=== PATIENT | male | born 1945 | race Caucasian/White ===

== ENCOUNTER 2017-02-08 12:38 | Inpatient (IN) | payer OTHER, MEDICARE ==
[~2017-02-08] VITALS: Ht 172.7 cm; Wt 75.1 kg
[2017-02-14] MEDS ORDERED: WARF-23 PO (16:24)
[2017-02-14] MEDS ORDERED: ENOX80P SQ (16:24)
[2017-02-15] MEDS ORDERED: LACTATED RINGER'S 1000 ML IV PRN (06:00)
[2017-02-15] MEDS ORDERED: POVIDONE IODINE 5% (ANTISEPSIS KIT) 4 APPLICATIONS EACH NARE PRN (06:00)
[2017-02-15] MEDS ORDERED: POVIDONE IODINE 7.5% SCRUB 118 ML BOTTLE TOPICAL SCH (06:00)
[2017-02-15] MEDS ORDERED: ROPIVACAINE PERI-ARTICULAR INJECTION. P-ARTICULR SCH ×5 (06:00)
[2017-02-15] MEDS ORDERED: ceFAZolin 2 GM PREMIX 50 ML IV SCH (06:00)
[2017-02-15] MEDS ORDERED: VANCOMYCIN 1000 MG/NS 250 ML (for <70 kg) IV SCH ×2 (06:00)
[2017-02-15] MEDS ORDERED: INSULIN HUMAN REGULAR 1,000 UNITS/10 ML VIAL SQ PRN (06:00)
[2017-02-15] MEDS ORDERED: METOPROLOL TARTRATE 25 MG TAB PO PRN (06:00)
[2017-02-15] MEDS ORDERED: TRANEXAMIC ACID INJ 718 MG in SODIUM CHLORIDE 0.9% INJ 100 ML IV SCH ×2 (06:00→12:00)
[2017-02-15] MEDS ORDERED: DEXAMETHASONE SOD PHOS 20 MG/5 ML VIAL IV SCH (06:00)
[2017-02-15] MEDS ORDERED: SODIUM CHLORID 0.9% 500 ML IV PRN (06:00)
[2017-02-15] MEDS ORDERED: CHLORHEXIDINE GLUCONATE 2 % 1 PACK (2 CLOTHS) TOPICAL PRN (06:00)
[2017-02-15] MEDS ORDERED: GENTAMICIN SULFATE 80 MG/2 ML VIAL ONE (07:08)
[2017-02-15 07:15] VITALS: BP 136/68; PULSE 71; RESP 18; TEMP 98.7; O2SAT 99
[2017-02-15] MEDS ORDERED: ACETAMINOPHEN 1000 MG/100 ML VIAL IV ONE (08:00)
[2017-02-15] MEDS ORDERED: MIDAZOLAM HCL 2 MG/2 ML VIAL ONE ×2 (08:01→10:49)
[2017-02-15] MEDS ORDERED: FAMOTIDINE 20 MG/2 ML VIAL ONE (08:01)
[2017-02-15] MEDS ORDERED: BUPIVACAINE LIPOSOME PF 1.3% 20 ML VIAL ONE (08:38)
[2017-02-15] MEDS ORDERED: ONDANSETRON HCL 4 MG/2 ML VIAL IVP PRN (10:15)
[2017-02-15] MEDS ORDERED: ACETAMINOPHEN/HYDROcodone 325 MG/5 MG TAB PO PRN (10:15)
[2017-02-15] MEDS ORDERED: BISACODYL 10 MG SUPP RECTAL PRN (10:15)
[2017-02-15] MEDS ORDERED: MORPHINE SULFATE 4 MG/ML INJ IV PUSH PRN (10:15)
[2017-02-15] MEDS ORDERED: diphenhydrAMINE HCL 50 MG/ML VIAL IV PRN (10:15)
[2017-02-15] MEDS ORDERED: ALUMINUM/MAGNESIUM/SIMETH 30 ML CUP PO PRN (10:15)
[2017-02-15] MEDS ORDERED: NALOXONE HCL 0.4 MG/ML AMP IV PRN (10:15)
[2017-02-15] MEDS ORDERED: SODIUM CHLORIDE 0.9% FLUSH 10 ML FLUSH IV FLUSH PRN (10:15)
--- NOTE | 2017-02-15 10:22 | PD.OP ---
cc: Dennys Castelan MD Operative Report Date of Surgery: Feb 15, 2017 Preoperative Diagnosis: Left knee severe osteoarthritis Postoperative Diagnosis: Same Procedure: Left total knee arthroplasty Anesthesia: Spinal and adductor canal block Surgeon: Dennys Castelan Manager Of Hospital(s): JONATHON Rivera The surgical procedure was assisted by my Advanced Registered Nurse Practitioner. My RADIO INTERFERENCE SUPERVISOR presence was necessary throughout this case for the manipulation and positioning of the surgical extremity. My RADIO INTERFERENCE SUPERVISOR was assisting me throughout the duration of this procedure. The skill set of an Advance Registered Nurse Practitioner was medically necessary to complete this procedure. During the surgical case, the surgical scheduler was working at the back table and the Advance Registered Nurse Practitioner was directly assisting me. Operation and Findings: IMPLANTS: DePuy Attune: Patella: size 38. Femur, posterior stabilized size 7. Tibia, rotating platform size 6. Tibial insert, rotating platform, posterior stabilized size 5 mm thickness. ESTIMATED BLOOD LOSS: 150 cc TOURNIQUET TIME: 41 minutes at 250 mmHg pressure. JUSTIFICATION FOR PROCEDURE: The patient has end-stage osteoarthritis to the knee. There is an attached conservative measures pathway form in the chart that describes the nonoperative measures that were undertaken prior to consideration of surgical management. The patient understood the risks and benefits of surgical management. See my office notes for further details PROCEDURE: The patient was brought back to the operative theatre. Adequate anesthesia was obtained. The patient received intravenous vancomycin and Ancef. The lower extremity was prepped and draped in the usual sterile fashion.The leg was exsanguinated, the tourniquet was raised. A standard anterior incision was performed followed by medial parapatellar arthrotomy was performed. End-stage arthritis was identified. Osteotomy of the patella was performed. We drilled holes for the patella. We trialed the patella component. We placed an intramedullary guide into the distal femur. We ultimately resected 11 mm off of the distal femur in 5 degrees of valgus. The remnants of the ACL and PCL were resected. Osteotomy of the proximal tibia was performed, resecting 7 mm off of the medial side. This was done with 3 degrees of posterior slope using an extramedullary guide. The distal end of the guide was placed in the mid aspect of the ankle. The femur was sized, and four chamfer cuts were completed in 3 of external rotation. We then cut the central box in the distal femur to replace the PCL. We resected the remnants of the menisci and removed osteophytes off of the femur and tibia. We then trialed the knee. We punched the tibia for the keel, and then used standard technique to cement in components. Excess cement was removed. We trialed the knee again and the final polyethylene thickness was chosen to provide extension to 0 degrees, and flexion of 140 degrees to gravity. The ligaments were appropriately balanced. Lateral release was not necessary to obtain excellent patellofemoral tracking. The tourniquet was released and adequate hemostasis was obtained. An intra- articular injection of a ropivacaine cocktail was injected. The posterior knee was inspected for excess cement, which was removed. The final polyethylene was put into position after thorough irrigation. We then closed deep fascia with a #2 Stratafix followed by skin with 2-0 Vicryl followed by toby. Postop plan is to weight-bear as tolerated. DVT prophylaxis will be performed with SCDmatias, JUAN ANTONIO beasley, early mobilization, and Lovenox for 30 days followed by 1 month of aspirin. Note that the patient had previously been treated with Coumadin for a history of DVT. The patient had been off of Coumadin for several months prior to his surgery. Dennys Castelan MD Feb 15, 2017 10:22
[2017-02-15] MEDS ORDERED: Post-op Orders (for Pharmacy) MISC XX ONE (10:37)
[2017-02-15] MEDS ORDERED: fentaNYL CITRATE 250 MCG/5 ML AMP ONE (10:50)
[2017-02-15] MEDS: SODIUM CHLOR 0.9% 1000 ML INJ 1,000 ML IV SCH ×2 (11:00→21:00)
[2017-02-15] MEDS ORDERED: DO NOT ADM ANY ANTICOAGULANT DRUGS PRN (11:00)
--- NOTE | 2017-02-15 11:21 | RADRPT ---
EXAM DATE/TIME: 02/15/2017 11:02 [facility] COMPARISON: No previous studies available for comparison. INDICATIONS : Post op left knee. MEDICAL HISTORY : None. SURGICAL HISTORY : None. ENCOUNTER: Initial ACUITY: 1 day PAIN SCORE: Non-responsive. LOCATION: Left Knee. FINDINGS: Patient is status post left knee arthroplasty. The arthroplasty components are in anatomic alignment. No acute bony fracture. Postsurgical features are noted in the soft tissues including surgical stapl es. CONCLUSION: 1. Expected postoperative changes of left knee arthroplasty with arthroplasty components in anatomic alignment and no significant acute fracture. Hugo Farnsworth MD on February 15, 2017 at 11:17 Board Certified Radiologist. This report was verified electronically.
[2017-02-15 12:14] VITALS: BP 131/61; PULSE 63; RESP 16; TEMP 95.7; O2SAT 99
[2017-02-15] MEDS ORDERED: PROPOFOL 200 MG/20 ML AMP IV ONE (13:02)
[2017-02-15] MEDS ORDERED: ePHEDrine/NS 25 MG/5 ML SYR IV ONE (13:02)
[2017-02-15] MEDS ORDERED: LACTATED RINGER'S 1000 ML INJ 1,000 ML IV ONE (13:02)
--- NOTE | 2017-02-15 14:22 | HHI.FF ---
Face to Face Verification Diagnosis: (1) Primary localized osteoarthrosis, lower leg (2) Status post total knee replacement, left Physical Therapy Gait training, Transfer training, bed to chair Knee: Total knee Left LE Weight Bearing: WB as tolerated Left LE Range of Motion: Active ROM Nursing Nursing: Miguel teaching, Dressing changes Dressing Changes: Daily dressing change I have seen patient Musa Tejada on 02/15/17. My clinical findings support the need for the requested home health care services because: Limited ability to care for self High risk of falls I certify that my clinical findings support that this patient is homebound because: Post-op weakness Unsteady gait/balance Isaiah Parker Feb 15, 2017 14:22
--- NOTE | 2017-02-15 14:22 | HHI.DCPOC ---
Discharge Care Plan Diagnosis: (1) Primary localized osteoarthrosis, lower leg (2) Status post total knee replacement, left Your Health Problems Are: Difficulty with ADL Goals to Promote Your Health * To prevent worsening of your condition and complications * To maintain your health at the optimal level Directions to Meet Your Goals Take your medications as prescribed Follow your dietary instruction Follow activity as directed Keep your appointments as scheduled Take your immunizations and boosters as scheduled If your symptoms worsen call your PCP, if no PCP go to Urgent Care Center or Emergency Room Smoking is Dangerous to Your Health. Avoid second hand smoke Call the 24-hour hour crisis hotline for domestic abuse at Isaiah Parker Feb 15, 2017 14:22
[2017-02-15] MEDS ORDERED: WALKER WHEELS/F1 MIS (14:24)
[2017-02-15] MEDS ORDERED: CPMMACHINE (14:24)
[2017-02-15] MEDS ORDERED: COMMODE 3-IN-11 MIS (14:24)
[2017-02-15 14:30] VITALS: O2SAT 99
[2017-02-15 15:57] VITALS: BP 133/64; PULSE 69; RESP 16; TEMP 96.4; O2SAT 98
--- NOTE | 2017-02-15 17:30 | PD.CONS ---
HPI Service [facility] Hospitalists Consult Requested By Dr. Castelan Reason for Consult Medical management. Primary Care Physician Loretta Berger MD Diagnoses: (1) Primary localized osteoarthrosis, lower leg (2) Status post total knee replacement, left History of Present Illness Written by Adenike Hidalgo, acting as scribe for Dr. León on 02/15/17 at 17:26. Mr. Tejada is a relatively healthy 71-year-old male patient with a known medical history of Hodgkin's lymphoma and osteoarthritis of the left knee who underwent a left total knee arthroplasty today by Dr. Castelan. Hospitalist service has been consulted for medical management. Patient states that he has suffered from left knee pain for several years and subsequently underwent a meniscal repair in 2016. The patient states that the day after his repair he developed calf pain, the cause being a left lower leg DVT. Patient has been on anticoagulants up until October of this year and has been seeing Dr. Hay in the outpatient setting. He states that the pain has continued since the meniscal repair in 2016, failing outpatient conservative therapy and decided to undergo a total left knee arthroplasty. Patient denies any recent fever, chills, headache, cough, shortness of breath, abdominal pain, nausea, vomiting, diarrhea , or dysuria. Denies taking any current medications. Review of Systems Musculoskeletal: COMPLAINS OF: Joint pain (left knee) Except as stated in HPI: all other systems reviewed are Neg Past Family Social History Allergies: Coded Allergies: No Known Allergies (Unverified , 02/15/17) Past Medical History History of Hodgkin's Lymphoma History of lower leg DVT previously on anticoagulation Osteoarthritis of left knee Past Surgical History Bilateral rotator cuff repair Left knee meiscal repair C4-C5 spinal plate placement Elbow surgery Reported Medications Active Reported Warfarin 5 Mg Tab 5 Mg PO DAILY stopped in October 2016 Active Ordered Medications Current Medications Medications (Trade) Dose Ordered Sig/Duong Route Start Time Stop Time Status Last Admin Povidone Iodine 1 applic 1 applic ONCE TOPICAL 02/15/17 06:00 02/18/17 05:59 Lactated Ringer's 1,000 ml @ 30 mls/hr Q24H PRN IV 02/15/17 06:00 02/18/17 05:59 02/15/17 07:15 Sodium Chloride 500 ml @ 30 mls/hr [id number] PRN IV 02/15/17 06:00 02/18/17 05:59 (NS 1000 ml Inj) 1,000 ml @ 100 mls/hr Q10H IV 02/15/17 11:00 02/15/17 11:00 (NS Flush) 2 ml UNSCH PRN IV FLUSH 02/15/17 10:15 Sodium Chloride 2 ml 2 ml BID IV FLUSH 02/15/17 21:00 (Ancef Inj/NS Inj) 100 ml @ 200 mls/hr Q6H IV 02/15/17 13:00 02/16/17 01:29 02/15/17 12:19 (Decadron Inj) 10 mg ONCE ONCE IV 02/16/17 07:45 02/16/17 07:46 (Lovenox Inj) 40 mg Q24H SQ 02/16/17 10:00 02/25/17 10:01 ([place] 5-325 Mg) 1 tab Q4H PRN PO 02/15/17 10:15 Acetaminophen/ Hydrocodone Bitart 2 tab 2 tab Q4H PRN PO 02/15/17 10:15 (Cyklokapron Inj/ NS Inj) 107.18 ml @ 200 mls/ hr UNSCH IV 02/15/17 12:00 02/15/17 18:00 02/15/17 11:41 (Theragran M Tab) 1 tab BID PO 02/16/17 21:00 04/17/17 20:59 (Zofran Inj) 4 mg Q6H PRN IVP 02/15/17 10:15 (Colace) 100 mg BID PO 02/16/17 21:00 (Mag-Al Plus Susp Liq) 30 ml Q6H PRN PO 02/15/17 10:15 (Ambien) 5 mg HS PRN PO 02/15/17 10:15 (Dulcolax Supp) 10 mg DAILY PRN RECTAL 02/15/17 10:15 (Milk Of Magnesia Liq) 30 ml DAILY PRN PO 02/15/17 10:15 (Narcan Inj) 0.4 mg UNSCH PRN IV 02/15/17 10:15 (Benadryl Inj) 25 mg Q6H PRN IV 02/15/17 10:15 (Morphine Inj) 2 mg Q3H PRN IV PUSH 02/15/17 10:15 Miscellaneous Information ALL NURSING [facility]... [facility] PRN .XX 02/15/17 11:00 02/16/17 10:59 Family History Paternal medical history significant for cardiovascular disease with valve replacement, passed at the age of 8585 years old. Maternal medical history significant for breast cancer and passed at the age of 4646 years old. Brother has a history of sarcoidosis and triple bypass repair. Social History Denies any tobacco abuse. Admits to occasional alcohol use. Denies any illicit drug use. Physical Exam Vital Signs Vital Signs Date Time Temp Pulse Resp B/P Pulse Ox O2 Delivery O2 Flow Rate FiO2 02/15/17 14:30 99 Nasal Cannula 2.00 02/15/17 12:14 95.7 63 16 131/61 99 02/15/17 11:45 98.2 65 16 122/59 98 Nasal Cannula 2 02/15/17 11:30 63 16 122/58 98 Nasal Cannula 2 02/15/17 11:15 62 16 116/56 98 Nasal Cannula 2 02/15/17 11:00 67 16 108/55 99 Nasal Cannula 2 02/15/17 10:45 75 16 120/59 100 Nasal Cannula 2 02/15/17 10:41 98.0 71 16 128/62 100 Nasal Cannula 2 02/15/17 07:15 98.7 71 18 136/68 99 Physical Exam GENERAL: This is a well-nourished, well-developed male patient, lying in bed in no apparent distress. SKIN: No rashes, ecchymoses or lesions. Warm and dry. HEENT: Atraumatic. Normocephalic. Pupils equal round and reactive. Extraocular motions intact. No scleral icterus. Nose without bleeding. Airway patent. NECK: Trachea midline. No JVD. Supple. CARDIOVASCULAR: Regular rate and rhythm. No murmur appreciated. RESPIRATORY: Clear to auscultation. Breath sounds equal bilaterally. No wheezes , rales, or rhonchi. GASTROINTESTINAL: Abdomen soft, non-tender, nondistended. No guarding. MUSCULOSKELETAL: Extremities without clubbing, cyanosis, or edema. No joint tenderness, effusion, or edema noted. Left leg marco dressing c/d/i, passive motion machine in place. NEUROLOGICAL: Awake and alert. Cranial nerves II through XII intact. Motor and sensory grossly within normal limits. Five out of 5 muscle strength in all muscle groups. Normal speech. Laboratory Laboratory Tests Test 02/15/17 07:25 Blood Type A POSITIVE Antibody Screen NEGATIVE Blood Bank Comment Imaging Last Impressions Knee X-Ray 02/15/17 1014 Signed Impressions: Service Date/Time: Monday, February 15, 2017 11:02 - CONCLUSION: 1. Expected postoperative changes of left knee arthroplasty with arthroplasty components in anatomic alignment and no significant acute fracture. Hugo Farnsworth MD Assessment and Plan Assessment and Plan Mr. Tejada is a relatively healthy 71-year-old male patient with a medical history including known history of Hodgkin's lymphoma and osteoarthritis of the left knee who underwent a left total knee arthroplasty by Dr. Castelan. Hospitalist service has been consulted for medical management. Status post total left knee arthroplasty Osteoarthritis of left knee - Post op day 0, 02/15/17 - Knee x-ray reviewed, normal postoperative findings. - Control pain, [place] 5/325 mg PO q4hr PRN per pain scale. Morphine 2 mg IV q3hr PRN pain > 5. - Monitor for constipation, Colace 100 mg PO BID scheduled, Milk of magnesium and bisacodyl suppository available PRN. - Control nausea, Zofran PRN. - Encourage use of incentive spirometry. - Vancomycin 1 g IV x 1 given in OR. Ancef 1 gram x 3 bags. - Decadron 10 mg IV x 1. - Encourage PO intake as tolerated. Continue IVF until tolerating PO intake. - Dressing changes, passive motion managed by orthopedic surgery. DVT prophylaxis: SCDs/Lovenox 40 mg sq Q24hr. Thank you for this consult. Will follow with you. This note was transcribed by JONATHON Crowley. I, Dr. Rafat León personally performed the history, physical exam, and medical decision making; and confirmed the accuracy of the information in the transcribed note. Authenticated by Dr. Rafat León on 02/15/17 at 18:32. Problem Qualifiers (1) Primary localized osteoarthrosis, lower leg: Qualified Code: M17.12 - Primary localized osteoarthrosis, lower leg, left Adenike Hidalgo Feb 15, 2017 17:30 Katharina León DO Feb 15, 2017 18:33
[2017-02-15 20:10] VITALS: BP 126/56; PULSE 78; RESP 17; TEMP 97.2; O2SAT 98
[2017-02-15 20:56] VITALS: O2SAT 97
[2017-02-15] MEDS: SODIUM CHLORIDE 0.9% FLUSH 10 ML FLUSH IV FLUSH SCH (21:00)
[2017-02-16] VITALS (9 sets, daily range): BP systolic 86–119; BP diastolic 51–62; PULSE 71–86; RESP 17–18; TEMP 96.8–97.4; O2SAT 95–97
[2017-02-16] MEDS: ZOLPIDEM TARTRATE 5 MG TAB PO PRN (03:32)
[2017-02-16 06:27] LABS: HEMATOCRIT 30.7 % (39.0-51.0); MEAN CELL VOLUME 85.8 FL (80.0-100.0); MEAN CORPUSCULAR HEMOGLOBIN 29.7 PG (27.0-34.0); MEAN CORPUSCULAR HGB CONC 34.6 % (32.0-36.0); PLATELET COUNT 181 TH/MM3 (150-450); RED BLOOD COUNT 3.58 MIL/MM3 (4.50-5.90); RED CELL DISTRIBUTION WIDTH 13.2 % (11.6-17.2); REVIEW FLAG FINAL; WHITE BLOOD COUNT 9.7 TH/MM3 (4.0-11.0)
[2017-02-16] MEDS: SODIUM CHLOR 0.9% 1000 ML INJ 1,000 ML IV SCH ×2 (07:00→17:00)
[2017-02-16] MEDS ORDERED: DEXAMETHASONE SOD PHOS 20 MG/5 ML VIAL IV ONE (07:45)
[2017-02-16] MEDS: SODIUM CHLORIDE 0.9% FLUSH 10 ML FLUSH IV FLUSH SCH ×2 (09:31→20:24)
[2017-02-16] MEDS: ENOXAPARIN SODIUM 40 MG/0.4 ML SYRINGE SQ SCH (09:31)
--- NOTE | 2017-02-16 10:15 | HHI.PR ---
Subjective Remarks Written by Adenike Hidalgo, acting as scribe for Dr. León on 02/16/17 at 0945. Follow up left total knee arthroplasty. Patient seen and examined today, lying comfortably in bed. He complains of lack of sleep here, as given Ambien last night which seemed to help. States pain is minimal, well controlled. No BM as of yet. Patient's low BP was addressed, he states he usually has low BP and has been asymptomatic. Denies any recent fever, chills, headache, dizziness, cough, shortness of breath, abdominal pain, nausea, vomiting, diarrhea or dysuria. Objective Vitals Vital Signs Date Time Temp Pulse Resp B/P Pulse Ox O2 Delivery O2 Flow Rate FiO2 02/16/17 07:40 97.4 71 17 99/53 97 02/16/17 04:15 96.8 71 17 107/53 96 02/16/17 00:05 96.9 75 17 117/54 96 02/15/17 20:56 97 21 02/15/17 20:10 97.2 78 17 126/56 98 02/15/17 15:57 96.4 69 16 133/64 98 02/15/17 14:30 99 Nasal Cannula 2.00 02/15/17 12:14 95.7 63 16 131/61 99 02/15/17 11:45 98.2 65 16 122/59 98 Nasal Cannula 2 02/15/17 11:30 63 16 122/58 98 Nasal Cannula 2 02/15/17 11:15 62 16 116/56 98 Nasal Cannula 2 02/15/17 11:00 67 16 108/55 99 Nasal Cannula 2 02/15/17 10:45 75 16 120/59 100 Nasal Cannula 2 02/15/17 10:41 98.0 71 16 128/62 100 Nasal Cannula 2 I/O 02/15/17 02/15/17 02/15/17 02/16/17 02/16/17 02/16/17 07:00 15:00 23:00 07:00 15:00 23:00 Intake Total 2030 ml 240 ml 120 ml Output Total 100 ml 825 ml 300 ml Balance 1930 ml -585 ml -180 ml Intake Oral 480 ml 240 ml 120 ml IV Total 250 ml Other 1300 ml Output Urine Total 825 ml 300 ml Estimated Blood Loss 100 ml # Voids 0 # Bowel Movements 0 0 0 Result Diagram: 02/16/17 0600 Imaging Last Impressions Lower Extremity Ultrasound 02/16/17 0000 Signed Impressions: Service Date/Time: January 13:22 - CONCLUSION: Normal examination. Rocael Streeter MD Knee X-Ray 02/15/17 1014 Signed Impressions: Service Date/Time: Wednesday, February 15, 2017 11:02 - CONCLUSION: 1. Expected postoperative changes of left knee arthroplasty with arthroplasty components in anatomic alignment and no significant acute fracture. Hugo Farnsworth MD Objective Remarks GENERAL: This is a well-nourished, well-developed male patient, lying in bed in no apparent distress. SKIN: No rashes, ecchymoses or lesions. Warm and dry. HEENT: Atraumatic. Normocephalic. Pupils equal round and reactive. Extraocular motions intact. No scleral icterus. Nose without bleeding. Airway patent. NECK: Trachea midline. No JVD. Supple. CARDIOVASCULAR: Regular rate and rhythm. No murmur appreciated. RESPIRATORY: Clear to auscultation. Breath sounds equal bilaterally. No wheezes , rales, or rhonchi. GASTROINTESTINAL: Abdomen soft, non-tender, nondistended. No guarding. MUSCULOSKELETAL: Extremities without clubbing, cyanosis, or edema. No joint tenderness, effusion, or edema noted. Left leg marco dressing c/d/i, passive motion machine in place. NEUROLOGICAL: Awake and alert. Cranial nerves II through XII intact. Motor and sensory grossly within normal limits. Five out of 5 muscle strength in all muscle groups. Normal speech. Procedures 02/15/2017 Left total knee arthroplasty A/P Problem List: (1) Primary localized osteoarthrosis, lower leg ICD Code: M17.10 Status: Acute (2) Status post total knee replacement, left ICD Code: Z96.652 Status: Acute Assessment and Plan Mr. Tejada is a relatively healthy 71-year-old male patient with a medical history including known history of Hodgkin's lymphoma and osteoarthritis of the left knee who underwent a left total knee arthroplasty by Dr. Castelan. Hospitalist service has been consulted for medical management. Status post total left knee arthroplasty Osteoarthritis of left knee - Post op day 1, performed on 02/15/17 - Knee x-ray reviewed, normal postoperative findings. - Control pain, [place] 5/325 mg PO q4hr PRN per pain scale. Morphine 2 mg IV q3hr PRN pain > 5. - No BM noted since surgery, monitor for constipation, Colace 100 mg PO BID scheduled, Milk of magnesium and bisacodyl suppository available PRN. - Control nausea, Zofran PRN. - Encourage use of incentive spirometry. - Vancomycin 1 g IV x 1 given in OR. Ancef 1 gram x 3 bags. - Decadron 10 mg IV x 1. - Tolerating PO intake. - Dressing changes and discharge plan per orthopedic surgery. Left calf pain rule out DVT - Per ortho note patient complaint of left calf pain. US has been ordered to rule out DVT. Left lower extremity ultrasound reviewed and showing normal examination. DVT prophylaxis: SCDs/Lovenox 40 mg sq Q24hr. Problem Qualifiers (1) Primary localized osteoarthrosis, lower leg: Qualified Code: M17.12 - Primary localized osteoarthrosis, lower leg, left Adenike Hidalgo Feb 16, 2017 10:15 Katharina León DO Feb 17, 2017 00:24
--- NOTE | 2017-02-16 12:08 | PD.ORT.PN ---
Subjective Post Op Day #: 1 Subjective Remarks Patient is having minimal pain to the left knee but is c/o moderate calf pain. Patient has been hypotensive per RN. Objective Vitals Vital Signs Date Time Temp Pulse Resp B/P Pulse Ox O2 Delivery O2 Flow Rate FiO2 02/16/17 07:40 97.4 71 17 99/53 97 02/16/17 04:15 96.8 71 17 107/53 96 02/16/17 00:05 96.9 75 17 117/54 96 02/15/17 20:56 97 21 02/15/17 20:10 97.2 78 17 126/56 98 02/15/17 15:57 96.4 69 16 133/64 98 02/15/17 14:30 99 Nasal Cannula 2.00 02/15/17 12:14 95.7 63 16 131/61 99 I/O 02/15/17 02/15/17 02/15/17 02/16/17 02/16/17 02/16/17 07:00 15:00 23:00 07:00 15:00 23:00 Intake Total 2030 ml 240 ml 120 ml Output Total 100 ml 825 ml 300 ml Balance 1930 ml -585 ml -180 ml Intake Oral 480 ml 240 ml 120 ml IV Total 250 ml Other 1300 ml Output Urine Total 825 ml 300 ml Estimated Blood Loss 100 ml # Voids 0 # Bowel Movements 0 0 0 Result Diagram: 02/16/17 0600 Procedures Left TKA Objective Remarks The patient's dressing was changed with scant serosanguineous drainage. Incision is well approximated with surgical clips intact. No redness or s/s of infection. EHL/TA/G intact. 2+ pedal pulse. Calf is tender to palpation. + SILT. Assessment & Plan Ortho Post Op Day #: 1 Problem List: Assessment and Plan POD #1: Left TKA 1. WBAT to LLE 2. Lovenox for DVT prophylaxis 3. Ice to the left knee PRN 4. US to r/o DVT of LLE secondary to calf pain 5. Stable for discharge today if US is negative for DVT and if BP improves. 6. NS for BP. Isaiah Parker Feb 16, 2017 12:08
--- NOTE | 2017-02-16 14:17 | RADRPT ---
EXAM DATE/TIME: 02/16/2017 13:22 [facility] COMPARISON: No previous studies available for comparison. EXTERNAL COMPARISON : [facility], US LEG, BILATERAL VENOUS DOPPLER, February 13, 2017, US LEG, LEFT VENOUS DOPPLER, [facility] 2016, February 01, 2016. INDICATIONS : Left leg pain. MEDICAL HISTORY : Deep venous thrombosis. Spinal meningitis. Hodgekin's cancer. anticoagulant therapy, coumadin. SURGICAL HISTORY : Left knee. Right elbow. Bilateral shoulder. C4&C5. ENCOUNTER: Initial ACUITY: 2 day PAIN SCORE: 2/10 LOCATION: Left leg. TECHNIQUE: Venous ultrasound of the leg was performed from the inguinal ligament to the proximal calf. Real-judith e, color Doppler and spectral tracing, compression and augmentation techniques were used. FINDINGS: There is normal compressibility of the deep venous system from the inguinal region to the proximal ca lf. No echogenic clot is seen in the lumen of the common femoral, femoral, popliteal, and posterior tibial veins. There is a normal response of the venous system to proximal and distal augmentation an d respiration. CONCLUSION: Normal examination. Rocael Streeter MD on February 16, 2017 at 14:14 Board Certified Radiologist. This report was verified electronically.
[2017-02-16] MEDS: MAGNESIUM HYDROXIDE SUSP 30 ML CUP PO PRN ×2 (14:31→20:23)
[2017-02-16] MEDS: MULTIVITAMINS/MINERALS THERAPEUTIC TAB PO SCH (20:23)
[2017-02-16] MEDS: DOCUSATE SODIUM 100 MG CAP PO SCH (20:23)
[2017-02-16] MEDS: ACETAMINOPHEN/HYDROcodone 325 MG/5 MG TAB PO PRN (21:53)
[2017-02-17] VITALS (7 sets, daily range): BP systolic 102–136; BP diastolic 54–93; PULSE 59–72; RESP 16–18; TEMP 95.9–97; O2SAT 96–100
[2017-02-17] MEDS: SODIUM CHLOR 0.9% 1000 ML INJ 1,000 ML IV SCH ×3 (02:38→21:05)
[2017-02-17 07:18] LABS: HEMATOCRIT 29.9 % (39.0-51.0); MEAN CELL VOLUME 86.1 FL (80.0-100.0); MEAN CORPUSCULAR HEMOGLOBIN 29.5 PG (27.0-34.0); MEAN CORPUSCULAR HGB CONC 34.3 % (32.0-36.0); PLATELET COUNT 181 TH/MM3 (150-450); RED BLOOD COUNT 3.47 MIL/MM3 (4.50-5.90); RED CELL DISTRIBUTION WIDTH 13.2 % (11.6-17.2); REVIEW FLAG FINAL; WHITE BLOOD COUNT 7.9 TH/MM3 (4.0-11.0)
[2017-02-17] MEDS: DOCUSATE SODIUM 100 MG CAP PO SCH ×2 (08:44→21:06)
[2017-02-17] MEDS: MULTIVITAMINS/MINERALS THERAPEUTIC TAB PO SCH ×2 (08:44→21:06)
[2017-02-17] MEDS: SODIUM CHLORIDE 0.9% FLUSH 10 ML FLUSH IV FLUSH SCH ×2 (08:45→21:06)
[2017-02-17] MEDS: ENOXAPARIN SODIUM 40 MG/0.4 ML SYRINGE SQ SCH (08:45)
[2017-02-17] MEDS: ACETAMINOPHEN/HYDROcodone 325 MG/5 MG TAB PO PRN ×3 (08:45→21:06)
--- NOTE | 2017-02-17 10:27 | HHI.PR ---
Subjective Remarks Follow up left total knee arthroplasty. Patient seen and examined today, sitting up in chair comfortably, PT at bedside. Patient states that left knee/ leg/calf pain is present with any palpation and with weight bearing. Tolerating PO intake, denies any nausea and vomiting. Denies any recent fever, chills, headache, cough, shortness of breath, abdominal pain, n/v, diarrhea or dysuria. Afebrile. Objective Vitals Vital Signs Date Time Temp Pulse Resp B/P Pulse Ox O2 Delivery O2 Flow Rate FiO2 02/17/17 10:10 97 02/17/17 09:45 18 02/17/17 07:48 97.0 72 16 110/55 97 02/17/17 00:00 96.1 60 16 111/56 96 02/16/17 20:53 95 21 02/16/17 20:00 97.3 85 18 117/55 96 02/16/17 16:01 97.4 80 17 119/61 95 02/16/17 13:35 113/62 02/16/17 13:26 96 02/16/17 11:26 97.0 86 17 86/51 97 I/O 02/16/17 02/16/17 02/16/17 02/17/17 02/17/17 02/17/17 06:59 14:59 22:59 06:59 14:59 22:59 Intake Total 120 ml 960 ml 480 ml 240 ml Output Total 300 ml 550 ml 550 ml Balance -180 ml 960 ml -70 ml -310 ml Intake Oral 120 ml 960 ml 480 ml 240 ml Output Urine Total 300 ml 550 ml 550 ml # Voids 4 # Bowel Movements 0 0 0 0 Result Diagram: 02/17/17 0659 Imaging Last Impressions Lower Extremity Ultrasound 02/16/17 0000 Signed Impressions: Service Date/Time: January 13:22 - CONCLUSION: Normal examination. Rocael Streeter MD Knee X-Ray 02/15/17 1014 Signed Impressions: Service Date/Time: Wednesday, February 15, 2017 11:02 - CONCLUSION: 1. Expected postoperative changes of left knee arthroplasty with arthroplasty components in anatomic alignment and no significant acute fracture. Hugo Farnsworth MD Objective Remarks GENERAL: This is a well-nourished, well-developed male patient, sitting up in chair. SKIN: No rashes, ecchymoses or lesions. Warm and dry. Left lower extremity surgical bandage in place, c/d/i. HEENT: Atraumatic. Normocephalic. Pupils equal round and reactive. Extraocular motions intact. No scleral icterus. Nose without bleeding. Airway patent. NECK: Trachea midline. No JVD. Supple. CARDIOVASCULAR: Regular rate and rhythm. No murmur appreciated. RESPIRATORY: Clear to auscultation. Breath sounds equal bilaterally. No wheezes , rales, or rhonchi. GASTROINTESTINAL: Abdomen soft, non-tender, nondistended. No guarding. MUSCULOSKELETAL: Extremities without clubbing, cyanosis, or edema. No joint tenderness, effusion, or edema noted. NEUROLOGICAL: Awake and alert. Cranial nerves II through XII intact. Motor and sensory grossly within normal limits. Five out of 5 muscle strength in all muscle groups. Normal speech. Procedures 02/15/2017 Left total knee arthroplasty A/P Problem List: (1) Primary localized osteoarthrosis, lower leg ICD Code: M17.10 Status: Acute (2) Status post total knee replacement, left ICD Code: Z96.652 Status: Acute Assessment and Plan Mr. Tejada is a relatively healthy 71-year-old male patient with a medical history including known history of Hodgkin's lymphoma and osteoarthritis of the left knee who underwent a left total knee arthroplasty by Dr. Castelan. Hospitalist service has been consulted for medical management. Status post total left knee arthroplasty Osteoarthritis of left knee - Post op day 2, performed on 02/15/17 - Knee x-ray reviewed, normal postoperative findings. - Control pain, Shelby 5/325 mg PO q4hr PRN per pain scale. Morphine 2 mg IV q3hr PRN pain > 5. - No BM noted since surgery, monitor for constipation, Colace 100 mg PO BID scheduled, Milk of magnesium and bisacodyl suppository available PRN. - Control nausea, Zofran PRN. - Encourage use of incentive spirometry. - Vancomycin 1 g IV x 1 given in OR. Ancef 1 gram x 3 bags. - Decadron 10 mg IV x 1. - Tolerating PO intake. - Dressing changes and discharge plan per orthopedic surgery. Left calf pain rule out DVT - Left lower extremity US reviewed negative for DVT, normal examination. Spoke to radiologist tracer bullet section supervisor to determine if repeat US should be ordered, who believed additional imaging via US would not be beneficial. - Awaiting ortho team to assess patient today to determine further recommendations and plan for left lower leg swelling and pain. - At this time discharge is not recommended until assessed by ortho. DVT prophylaxis: SCDs/Lovenox 40 mg sq Q24hr. Problem Qualifiers (1) Primary localized osteoarthrosis, lower leg: Qualified Code: M17.12 - Primary localized osteoarthrosis, lower leg, left Katharina León DO Feb 17, 2017 10:27 Adenike Hidalgo Feb 17, 2017 12:55 Katharina León DO Feb 17, 2017 10:27 Adenike Hidalgo Feb 17, 2017 12:55
--- NOTE | 2017-02-17 17:59 | PD.ORT.PN ---
Subjective Post Op Day #: 2 Subjective Remarks Patient is having very little pain to the left knee but continues to c/o moderate calf pain. Patient's blood pressure has normalized per primary RN. Patient denies dizziness. Objective Vitals Vital Signs Date Time Temp Pulse Resp B/P Pulse Ox O2 Delivery O2 Flow Rate FiO2 02/17/17 16:16 18 02/17/17 15:55 96.1 71 16 110/54 98 02/17/17 11:15 95.9 59 16 102/55 98 02/17/17 10:10 97 02/17/17 07:48 97.0 72 16 110/55 97 02/17/17 00:00 96.1 60 16 111/56 96 02/16/17 20:53 95 21 02/16/17 20:00 97.3 85 18 117/55 96 I/O 02/16/17 02/16/17 02/16/17 02/17/17 02/17/17 02/17/17 07:00 15:00 23:00 07:00 15:00 23:00 Intake Total 120 ml 960 ml 480 ml 240 ml 720 ml Output Total 300 ml 550 ml 550 ml Balance -180 ml 960 ml -70 ml -310 ml 720 ml Intake Oral 120 ml 960 ml 480 ml 240 ml 720 ml Output Urine Total 300 ml 550 ml 550 ml # Voids 4 2 # Bowel Movements 0 0 0 0 0 Result Diagram: 02/17/17 0659 Procedures Left TKA Objective Remarks The patient's dressing is C/D/I. EHL/TA/G intact. 2+ pedal pulse. Calf is tender to palpation with mild swelling. + SILT. Last 48 hours Impressions Lower Extremity Ultrasound 02/16/17 0000 Signed Impressions: Service Date/Time: January 13:22 - CONCLUSION: Normal examination. Rocael Streeter MD Assessment & Plan Ortho Post Op Day #: 2 Problem List: Assessment and Plan POD #2: Left TKA 1. WBAT to LLE 2. Lovenox for DVT prophylaxis 3. Ice to the left knee PRN 4. US of LLE is negative for DVT. 5. Stable for discharge on Monday if calf pain has improved. Isaiah Parker Feb 17, 2017 17:59
[2017-02-17] MEDS: MAGNESIUM HYDROXIDE SUSP 30 ML CUP PO PRN (21:06)
[2017-02-17] MEDS: ZOLPIDEM TARTRATE 5 MG TAB PO PRN (23:38)
[2017-02-18 06:31] LABS: HEMATOCRIT 29.5 % (39.0-51.0); MEAN CELL VOLUME 86.6 FL (80.0-100.0); MEAN CORPUSCULAR HEMOGLOBIN 29.8 PG (27.0-34.0); MEAN CORPUSCULAR HGB CONC 34.4 % (32.0-36.0); PLATELET COUNT 183 TH/MM3 (150-450); RED BLOOD COUNT 3.41 MIL/MM3 (4.50-5.90); RED CELL DISTRIBUTION WIDTH 13.3 % (11.6-17.2); REVIEW FLAG FINAL; WHITE BLOOD COUNT 5.2 TH/MM3 (4.0-11.0)
[2017-02-18 07:35] VITALS: BP 101/55; PULSE 81; RESP 16; TEMP 97.6; O2SAT 98
[2017-02-18] MEDS: ACETAMINOPHEN/HYDROcodone 325 MG/5 MG TAB PO PRN (07:53)
--- NOTE | 2017-02-18 08:14 | PD.ORT.PN ---
Subjective Post Op Day #: 3 Subjective Remarks Patient is having very little pain to the left knee with decreased left calf pain. Patient is in the romero ambulating. Objective Vitals Vital Signs Date Time Temp Pulse Resp B/P Pulse Ox O2 Delivery O2 Flow Rate FiO2 02/17/17 23:34 96.7 66 18 113/56 97 02/17/17 19:17 96.7 64 18 136/93 100 02/17/17 16:16 18 02/17/17 15:55 96.1 71 16 110/54 98 02/17/17 11:15 95.9 59 16 102/55 98 02/17/17 10:10 97 I/O 02/17/17 02/17/17 02/17/17 02/18/17 02/18/17 02/18/17 07:00 15:00 23:00 07:00 15:00 23:00 Intake Total 240 ml 720 ml 480 ml 360 ml Output Total 550 ml 750 ml Balance -310 ml 720 ml 480 ml -390 ml Intake Oral 240 ml 720 ml 480 ml 360 ml Output Urine Total 550 ml 750 ml # Voids 2 3 # Bowel Movements 0 0 0 0 Result Diagram: 02/18/17 0610 Procedures Left TKA Objective Remarks The patient's dressing is C/D/I. EHL/TA/G intact. 2+ pedal pulse. Calf is mildly tender to palpation with mild swelling. + SILT. Last 48 hours Impressions Lower Extremity Ultrasound 02/16/17 0000 Signed Impressions: Service Date/Time: January 13:22 - CONCLUSION: Normal examination. Rocael Streeter MD Assessment & Plan Ortho Post Op Day #: 3 Problem List: Assessment and Plan POD #3: Left TKA 1. WBAT to LLE 2. Lovenox for DVT prophylaxis 3. Ice to the left knee PRN 4. US of LLE is negative for DVT. 5. Stable for discharge today home with home health Isaiah Parker Feb 18, 2017 08:14
[2017-02-18] MEDS ORDERED: AMBI5TAB PO (09:05)
[2017-02-18] MEDS: MAGNESIUM HYDROXIDE SUSP 30 ML CUP PO PRN (09:44)
[2017-02-18] MEDS: ENOXAPARIN SODIUM 40 MG/0.4 ML SYRINGE SQ SCH (09:44)
[2017-02-18] MEDS: SODIUM CHLORIDE 0.9% FLUSH 10 ML FLUSH IV FLUSH SCH (09:45)
[2017-02-18] MEDS: DOCUSATE SODIUM 100 MG CAP PO SCH (09:45)
[2017-02-18] MEDS: SODIUM CHLOR 0.9% 1000 ML INJ 1,000 ML IV SCH (09:45)
[2017-02-18] MEDS: MULTIVITAMINS/MINERALS THERAPEUTIC TAB PO SCH (09:45)
[2017-02-18 11:15] VITALS: BP 98/50; PULSE 64; RESP 16; TEMP 96.6; O2SAT 97
--- NOTE | 2017-02-20 20:54 | HHI.DS ---
Discharge Summary Admission Date Feb 15, 2017 at 05:31 Discharge Date: Feb 18, 2017 Admitting Diagnosis Primary localized OA, lower leg Status post total knee arthroplasty, left Diagnosis: (1) Primary localized osteoarthrosis, lower leg Diagnosis: Principal (2) Status post total knee replacement, left Diagnosis: Principal Procedures Left TKA Brief History This is a 71 year old male patient with severe OA of the left knee. CBC/BMP: 02/18/17 0610 Significant Findings Laboratory Tests Test 02/18/17 06:10 Red Blood Count 3.41 MIL/MM3 (4.50-5.90) Hemoglobin 10.1 GM/DL (13.0-17.0) Hematocrit 29.5 % (39.0-51.0) PE at Discharge The patient's dressing is C/D/I. EHL/TA/G intact. 2+ pedal pulse. Calf is mildly tender to palpation with mild swelling. + SILT. Last 48 hours Impressions Lower Extremity Ultrasound 02/16/17 0000 Signed Impressions: Service Date/Time: January 13:22 - CONCLUSION: Normal examination. Rocael Streeter MD Hospital Course The patient was admitted to the hospital for severe OA of the left knee to have a left TKA. The patient's surgery went well with no complications. The patient is WBAT on the left LE. The patient is on Lovenox and ASA for DVT prophylaxis and is on a regular diet. The patient was discharged home with home health and will f/u with Dr. Castelan in 1-2 weeks. Pt Condition on Discharge: Stable Discharge Disposition: Disch w/ Home Health Serv Discharge Instructions Diet Instructions: As Tolerated, No Restrictions Activities You Can Perform: Weight Bearing as Noam Activities to Avoid: Strenuous Activity Follow up Referrals: Orthopedics with Dennys Castelan MD [facility]/ with [facility] New Medications: Commode 3-in-1 (Commode 3-in-1) 1 Mis Mis 1 EA .ROUTE DIRECTED #1 Ref 0 EA CPM-Continuous Passive Motion Machine (CPM-Continuous Passive Motion Machine) 1 Ea Device 1 EA .ROUTE DIRECTED #1 Ref 0 EA Walker with Front Wheels (Walker with Front Wheels) 1 Mis Mis 1 EA .ROUTE DIRECTED #1 Ref 0 EA Zolpidem (Ambien) 5 Mg Tab 5 MG PO HS PRN INSOMNIA #10 Ref 0 TAB Discontinued Medications: Warfarin (Warfarin) 5 Mg Tab 5 MG PO DAILY Blood Clot Prevention #30 Ref 0 TAB Isaiah Parker Feb 20, 2017 20:54
== END 2017-02-18 12:54 | disposition home health service (06) | DRG 470 ==
LOC: HSDI 02-15 05:31 → N06B 02-15 12:16
PROVIDERS: ADMIT Orthopaedic Surgery; ATTEND Orthopaedic Surgery
PROC: 3E0T3CZ (ICD-10-PCS; 2017-02-15)
PROC: 0SRD0J9 Replacement of Left Knee Joint with Synthetic Substitute, Cemented, Open Approach (ICD-10-PCS; principal; 2017-02-15 08:08)
DX: M17.12 Unilateral primary osteoarthritis, left knee (principal); I95.9 Hypotension, unspecified; Z85.71 Personal history of Hodgkin lymphoma; Z86.718 Personal history of other venous thrombosis and embolism
CPT/HCPCS: 73560; 85027; 86850; 86900; 86901; 93971; 94150; C1776; C9290; J0131; J0171; J0690; J0735; J1100; J1580; J1650; J1885; J2250; J2795; J3010; J3370; J7030; J7050; J7120; L1830